=== PATIENT | male | born 1960 | race Two or more races ===

== ENCOUNTER 2017-12-28 09:43 | Emergency (ER) | payer MEDICAID ==
[~2017-12-28] VITALS: Ht 167.6 cm; Wt 77.1 kg
[2017-12-28 11:12] VITALS: BP 148/92
[2017-12-28] MEDS ORDERED: KETOROLAC TROMETH 60MG/2ML VIAL IM ONE (11:15)
== END 2017-12-28 11:20 | disposition home or self-care (01) ==
LOC: ER 09:43
DX: S29.012A Strain of muscle and tendon of back wall of thorax, initial encounter (principal); E11.9 Type 2 diabetes mellitus without complications; I10 Essential (primary) hypertension; V43.52XA Car driver injured in collision with other type car in traffic accident, initial encounter; Y93.89 Activity, other specified; Y92.89 Other specified places as the place of occurrence of the external cause; Y99.8 Other external cause status
CPT/HCPCS: 72070; 96372; 99284; J1885

== ENCOUNTER 2018-08-19 18:03 | Emergency (ER) | payer MEDICAID, OTHER ==
[~2018-08-19] VITALS: Ht 175.3 cm; Wt 102.1 kg
[2018-08-19 18:11] VITALS: BP 154/93
[2018-08-19 19:12] LABS: Basophils # (auto) 0.1 uL; Basophils % (auto) 0.9 % (0.0-2.0); Eosinophils # (auto) 0 uL; Eosinophils % (auto) 0.2 % (0.0-7.0); Hematocrit 43.9 % (41.0-53.0); Hemoglobin 14.6 g/dL (13.5-17.5); Lymphocytes # (auto) 2.4 uL; Lymphocytes % (auto) 41.2 % (10.0-50.0); Mean Corpuscular Hemoglobin 30.8 pg (28.0-32.0); Mean Corpuscular Hgb Conc. 33.2 g/dL (32.0-36.0); Mean Corpuscular Volume 92.7 fL (80.0-100.0); Monocytes # (auto) 0.4 uL; Monocytes % (auto) 6.7 % (0.0-12.0); Nucleated Red Blood Cells % 0.1 %; Platelet Count (auto) 239 10^3/uL (140-450); Red Blood Cells 4.74 10^6/uL (4.5-5.90); Red Cell Distribution Width 14.2 % (11.8-14.3); White Blood Cell 5.9 10^3/uL (4.4-10.8)
[2018-08-19 19:24] LABS: Urine WBC None Seen /hpf (0 - 3)
[2018-08-19 19:33] LABS: Albumin 3.9 g/dL (3.4-5.0); BUN/Creatinine Ratio 9.7; Calcium 8.7 mg/dL (8.5-10.1); Potassium 3.4 mmol/L (3.5-5.1)
[2018-08-19 19:34] LABS: Urine Bacteria NONE SEEN /hpf (None Seen); Urine Blood Negative /uL (Negative); Urine Specific Gravity 1.001 (1.001-1.035)
[2018-08-19 19:38] LABS: Bilirubin, Total 0.3 mg/dL (0.2-1.0); Total Protein 8.3 g/dL (6.4-8.2)
[2018-08-19 19:41] LABS: Salicylate < 1.7 mg/dL (2.8-20.0)
[2018-08-19 19:42] LABS: Acetaminophen < 2.0 ug/mL (10-30)
[2018-08-19 19:53] LABS: Amphetamine Screen, Urine NEGATIVE (NEGATIVE); Barbiturate Scree,Urine NEGATIVE (NEGATIVE); Benzodiazephine Screen, Urine NEGATIVE (NEGATIVE); Cannabinoid Screen, Urine NEGATIVE (NEGATIVE); Cocaine Screen, Urine NEGATIVE (NEGATIVE); Opiate Scree,Urine NEGATIVE (NEGATIVE); Phencyclidine Screen, Urine NEGATIVE (NEGATIVE)
== END 2018-08-19 20:40 | disposition left against medical advice (07) ==
LOC: EDBD 18:03 → ER 18:03
DX: F10.10 Alcohol abuse, uncomplicated (principal); Z53.21 Procedure and treatment not carried out due to patient leaving prior to being seen by health care provider
CPT/HCPCS: 36415; 80053; 80307; 80320; 80329; 81001; 85025

== ENCOUNTER 2020-01-24 23:26 | Emergency (ER) | payer MEDICAID, OTHER ==
[~2020-01-24] VITALS: Ht 170.2 cm; Wt 99.8 kg
[2020-01-25 01:27] LABS: Amphetamine Screen, Urine NEGATIVE (NEGATIVE); Barbiturate Scree,Urine NEGATIVE (NEGATIVE); Benzodiazephine Screen, Urine NEGATIVE (NEGATIVE); Cannabinoid Screen, Urine NEGATIVE (NEGATIVE); Cocaine Screen, Urine NEGATIVE (NEGATIVE); Opiate Scree,Urine NEGATIVE (NEGATIVE); Phencyclidine Screen, Urine NEGATIVE (NEGATIVE)
[2020-01-25 01:31] LABS: Urine Bacteria NONE SEEN /hpf (None Seen); Urine Blood Negative /uL (Negative); Urine Specific Gravity 1.003 (1.001-1.035); Urine WBC <1 /hpf (0 - 3)
[2020-01-25] MEDS ORDERED: ACETAMINOPHEN 325 MG TAB PO ONE (01:45)
[2020-01-25 02:00] VITALS: BP 130/90
== END 2020-01-25 02:46 | disposition home or self-care (01) ==
LOC: ER 23:31
DX: S22.32XA Fracture of one rib, left side, initial encounter for closed fracture (principal); S20.212A Contusion of left front wall of thorax, initial encounter; F10.129 Alcohol abuse with intoxication, unspecified; R04.0 Epistaxis; I10 Essential (primary) hypertension; E11.9 Type 2 diabetes mellitus without complications; Y90.9 Presence of alcohol in blood, level not specified; W19.XXXA Unspecified fall, initial encounter; Y93.89 Activity, other specified; Y92.89 Other specified places as the place of occurrence of the external cause; Y99.8 Other external cause status
CPT/HCPCS: 70450; 70486; 71101; 72125; 80307; 81001

== ENCOUNTER 2020-06-13 16:41 | Emergency (ER) | payer MEDICAID ==
[~2020-06-13] VITALS: Ht 170.2 cm; Wt 95.3 kg
[2020-06-13 16:56] VITALS: BP 142/83
== END 2020-06-13 17:31 | disposition home or self-care (01) ==
LOC: ER 16:41
DX: H60.92 Unspecified otitis externa, left ear (principal)